=== PATIENT | female | born 1960 | race Caucasian/White ===

== ENCOUNTER 2022-09-18 22:50 | Emergency (ER) | payer OTHER ==
[2022-09-18 23:09] VITALS: BP 153/85; PULSE 79; RESP 18; TEMP 98.1; BMI 29.8
[2022-09-19 00:54] LABS: BASO % 0.7 % (0-2.0); EOS % 4.3 % (0-4.5); HEMATOCRIT 40.4 % (32.4-45.2); HEMOGLOBIN 13.6 GM/dL (10.7-15.3); LYMPH % 19.2 % (8-40); MCH 28.5 pg (25.7-33.7); MCHC 33.7 g/dl (32.0-36.0); MEAN CELL VOLUME 84.6 fl (80-96); MEAN PLT VOLUME 9.3 fl (7.5-11.1); MONO % 8.2 % (3.8-10.2); NEUT % 67.6 % (42.8-82.8); PLATELET COUNT 313 10^3/uL (134-434); RBC 4.77 M/mm3 (3.60-5.2); RDW 13.2 % (11.6-15.6)
[2022-09-19 01:17] LABS: INR 1.04 (0.83-1.09); PROTHROMBIN TIME (PATIENT) 12.1 SEC (9.7-13.0)
[2022-09-19 01:19] LABS: ACTIVATED PTT 32.1 SECONDS (25.2-36.5)
[2022-09-19 01:30] LABS: CALCIUM 9.7 mg/dL (8.5-10.1)
[2022-09-19 01:31] LABS: ALBUMIN 3.7 g/dl (3.4-5.0); BLOOD UREA NITROGEN 11.6 mg/dL (7-18)
[2022-09-19 01:34] LABS: CREATININE 0.8 mg/dL (0.55-1.3)
[2022-09-19 01:35] LABS: BILIRUBIN,TOTAL 0.3 mg/dL (0.2-1); TOT PROT 8.1 g/dl (6.4-8.2)
[2022-09-19 01:38] LABS: N-TERMINAL BNP 81.6 pg/ml (5-125)
[2022-09-19] MEDS ORDERED: AZITHROMYCIN 250 MG TABLET PO ONE (03:43)
[2022-09-19] MEDS ORDERED: AZITHROMYCIN 500 MG TABLET ONE (03:49)
== END 2022-09-19 03:54 | disposition home or self-care (01) ==
LOC: JER 22:50
DX: J40 Bronchitis, not specified as acute or chronic (principal); R07.89 Other chest pain; R05.1 Acute cough; J18.9 Pneumonia, unspecified organism; R53.1 Weakness; R22.43 Localized swelling, mass and lump, lower limb, bilateral; Z20.822 Contact with and (suspected) exposure to COVID-19
CPT/HCPCS: 0241U-QW; 36415; 71046-TC-FY; 80053; 83880; 84484; 85025; 85610; 85730; 86850; 86900; 86901; 93005; 93010; 99285-25